=== PATIENT | female | born 1995 | race Caucasian/White ===

== ENCOUNTER 2017-06-08 01:30 | Outpatient (CLI) | payer MEDICAID, OTHER ==
[~2017-06-08] VITALS: Ht 160 cm; Wt 76.0 kg
[~2017-06-08 01:30] MED LIST: NORG1TAB10 PO; PNV1TABL11 PO
[2017-06-08 02:13] LABS: MICROSCOPIC INDICATED
== END 2017-06-08 02:38 | disposition home or self-care (01) ==
LOC: LDOP 01:30
PROVIDERS: ATTEND Obstetrics & Gynecology
DX: O42.913 Preterm premature rupture of membranes, unspecified as to length of time between rupture and onset of labor, third trimester (principal); O26.893 Other specified pregnancy related conditions, third trimester; R10.9 Unspecified abdominal pain; Z3A.35 35 weeks gestation of pregnancy
CPT/HCPCS: 59025; 81001; 87086; 89060; 99211; G0463; Q0114

== ENCOUNTER 2017-06-19 18:07 | Outpatient (CLI) | payer OTHER | END 2017-06-19 19:31 | disposition home or self-care (01) | LOC: LDOP 18:07 | PROVIDERS: ATTEND Obstetrics & Gynecology | DX: O42.90 Premature rupture of membranes, unspecified as to length of time between rupture and onset of labor, unspecified weeks of gestation (principal); Z3A.00 Weeks of gestation of pregnancy not specified | CPT/HCPCS: 59025; 99211; G0463 ==

== ENCOUNTER 2017-06-25 12:27 | Outpatient (CLI) | payer OTHER ==
[~2017-06-25] VITALS: Ht 160 cm; Wt 75.9 kg
[2017-06-25 12:52] VITALS: BP 124/68
[2017-06-27] MEDS ORDERED: IBUP-1222 PO (14:04)
== END 2017-06-25 14:00 | disposition home or self-care (01) ==
LOC: LDOP 12:27
PROVIDERS: ATTEND Obstetrics & Gynecology
DX: O26.893 Other specified pregnancy related conditions, third trimester (principal); R10.9 Unspecified abdominal pain; Z3A.00 Weeks of gestation of pregnancy not specified
CPT/HCPCS: 59025; 99211; G0463

== ENCOUNTER 2017-12-02 16:47 | Emergency (ER) | payer OTHER ==
[~2017-12-02] VITALS: Ht 160 cm; Wt 61.9 kg
[~2017-12-02 16:47] MED LIST changes: +IBUP-1222 PO
[2017-12-02 17:57] LABS: BASOPHILS # (AUTO) 0.02 x10^3/uL (0-0.1); BASOPHILS % (AUTO) 0 % (0-1); EOSINOPHILS # (AUTO) 0.04 x10^3/uL (0-0.4); EOSINOPHILS % (AUTO) 1 % (1-7); LYMPHOCYTES # (AUTO) 2.84 x10^3/uL (1-3.4); LYMPHOCYTES % (AUTO) 37 % (22-44); MD NO; MEAN CORPUSCULAR HEMOGLOBIN 31.6 pg (27.0-34.8); MEAN CORPUSCULAR HGB CONC 34.7 g/dL (32.4-35.8); MEAN CORPUSCULAR VOLUME 91.2 fL (80-100); MEAN PLATELET VOLUME 7.4 fL (7.4-10.4); MONOCYTES # (AUTO) 0.49 x10^3/uL (0.2-0.8); MONOCYTES % (AUTO) 6 % (2-9); NEUTROPHILS # (AUTO) 4.41 x10^3/uL (1.8-6.8); NEUTROPHILS % (AUTO) 57 % (42-75); PLATELET COUNT 289 x10^3/uL (130-400); RED BLOOD COUNT 4.66 x10^6/uL (3.82-5.3); RED CELL DISTRIBUTION WIDTH 13.7 % (9.6-15.2)
[2017-12-02 18:07] LABS: ALBUMIN 4.2 g/dL (3.4-5.0); ANION GAP 8 mmol/L (5-15); CALCIUM 8.8 mg/dL (8.5-10.1); CHLORIDE 109 mmol/L (98-107); CREATININE 0.99 mg/dL (0.55-1.02)
[2017-12-02 19:34] VITALS: BP 125/86
== END 2017-12-02 21:13 | disposition home or self-care (01) ==
LOC: ED 21:00
DX: R55 Syncope and collapse (principal)
CPT/HCPCS: 36415; 80048; 82040; 84703; 85025; 93005; 99285

== ENCOUNTER 2018-06-25 10:27 | Emergency (ER) | payer OTHER ==
[~2018-06-25] VITALS: Ht 160 cm; Wt 58.1 kg
--- NOTE | 2018-06-25 10:40 | NUR ---
PT PRESENTS TO ED FOR GENERALIZED WEAKNESS AND VOMITING, PT APPROX 16 WKS , HAS APPT NEXT WEEK WITH OB BUT HAS NOT REC'D CARE. PT HAS 3 CHILDREN. NO MEDICAL HX. BS 77
--- NOTE | 2018-06-25 11:40 | NUR ---
PT REQUESTING FOOD, LABS DRAWN AND US DONE BUT RESULTS NOT BACK. PT EDUCATED TO WAIT FOR MD TO EAT
[2018-06-25 11:48] LABS: BASOPHILS # (AUTO) 0.03 x10^3/uL (0-0.1); BASOPHILS % (AUTO) 0 % (0-1); EOSINOPHILS # (AUTO) 0.01 x10^3/uL (0-0.4); EOSINOPHILS % (AUTO) 0 % (1-7); LYMPHOCYTES # (AUTO) 2.28 x10^3/uL (1-3.4); LYMPHOCYTES % (AUTO) 26 % (22-44); MD NO; MEAN CORPUSCULAR HEMOGLOBIN 30.6 pg (27.0-34.8); MEAN CORPUSCULAR HGB CONC 34.1 g/dL (32.4-35.8); MEAN CORPUSCULAR VOLUME 89.8 fL (80-100); MEAN PLATELET VOLUME 7.1 fL (7.4-10.4); MONOCYTES # (AUTO) 0.28 x10^3/uL (0.2-0.8); MONOCYTES % (AUTO) 3 % (2-9); NEUTROPHILS # (AUTO) 6.32 x10^3/uL (1.8-6.8); NEUTROPHILS % (AUTO) 71 % (42-75); PLATELET COUNT 311 x10^3/uL (130-400); RED BLOOD COUNT 4.37 x10^6/uL (3.82-5.3); RED CELL DISTRIBUTION WIDTH 13.1 % (9.6-15.2)
[2018-06-25 11:51] LABS: CULTURE INDICATED? YES; MICROSCOPIC INDICATED
[2018-06-25 11:58] LABS: ALANINE AMINOTRANSFERASE 27 U/L (12-78); ALBUMIN 3.7 g/dL (3.4-5.0); ANION GAP 7 mmol/L (5-15); CALCIUM 8.8 mg/dL (8.5-10.1); CHLORIDE 109 mmol/L (98-107); CREATININE 0.67 mg/dL (0.55-1.02)
[2018-06-25 12:20] LABS: ALKALINE PHOSPHATASE 61 U/L (45-117); BILIRUBIN,TOTAL 0.3 mg/dL (0.2-1.0); TOTAL PROTEIN 7.6 g/dL (6.4-8.2)
--- NOTE | 2018-06-25 12:56 | NUR ---
PT RESTING IN GURNEY WATCHING TV, OK TO EAT, UP FOR RECHECK. NAD, VSS, WCTM. AT BEDSIDE
[2018-06-25 12:57] VITALS: BP 105/72
== END 2018-06-25 14:16 | disposition home or self-care (01) ==
LOC: ED 14:04
DX: O23.12 Infections of bladder in pregnancy, second trimester (principal); Z3A.16 16 weeks gestation of pregnancy; Z90.89 Acquired absence of other organs
CPT/HCPCS: 36415; 76815; 80053; 81001; 84702; 85025; 87086; 93005; 99284

== ENCOUNTER 2018-11-17 13:43 | Outpatient (CLI) | payer OTHER ==
[~2018-11-17] VITALS: Ht 160 cm; Wt 64.0 kg
[2018-11-17 14:09] VITALS: BP 109/71
== END 2018-11-17 16:10 | disposition home or self-care (01) ==
LOC: LDOP 13:43
PROVIDERS: ATTEND Obstetrics & Gynecology
DX: O42.913 Preterm premature rupture of membranes, unspecified as to length of time between rupture and onset of labor, third trimester (principal); Z3A.33 33 weeks gestation of pregnancy
CPT/HCPCS: 36415; 59025; 76805; 80307; 81001; 84112; 86592; 86762; 86803; 86850; 86900; 87081; 87340; 87806; 99211; G0463; G0475

== ENCOUNTER 2019-04-28 14:06 | Day surgery (SDC) | payer OTHER ==
[~2019-04-28] VITALS: Ht 160 cm; Wt 66.8 kg
[~2019-04-28 14:06] MED LIST changes: +VITA1TAB86 PO
[2019-04-28] MEDS ORDERED: LACTATED RINGERS 1,000 ML IV SCH (14:22)
[2019-04-28] MEDS ORDERED: BUPIVACAINE/PF-EPI 0.25% 1:200K ONE (14:24)
[2019-04-28] MEDS ORDERED: SILVER NITRATE STICK TP ONE (14:25)
[2019-04-28 14:30] VITALS: BP 133/84
[2019-04-28] MEDS ORDERED: DIAZEPAM 5 MG TABLET PO ONE ×2 (14:30→14:51)
[2019-04-28] MEDS ORDERED: ACETAMINOPHEN 500 MG TABLET PO ONE (14:30)
[2019-04-28] MEDS ORDERED: PLEASE ENTER HEIGHT AND WEIGHT MC SCH (14:30)
[2019-04-28] MEDS ORDERED: SCOPOLAMINE PATCH, 1.5MG PATCH.TD72 TD ONE (14:30)
[2019-04-28] MEDS ORDERED: GABAPENTIN 300 MG CAPSULE PO ONE (14:30)
[2019-04-28 14:38] LABS: HCG UR SG 1.016 (1.003-1.030)
[2019-04-28] MEDS ORDERED: SCOPOLAMINE PATCH, 1.5MG PATCH.TD72 TD STA (14:51)
[2019-04-28] MEDS ORDERED: ACETAMINOPHEN 500 MG TABLET PO STA (14:51)
[2019-04-28] MEDS ORDERED: GABAPENTIN 300 MG CAPSULE PO STA (14:51)
[2019-04-28] MEDS ORDERED: FENTANYL PF 250 MCG/5ML ONE (15:06)
[2019-04-28] MEDS ORDERED: MIDAZOLAM 1 MG/ML, 2ML ONE (15:06)
[2019-04-28] MEDS ORDERED: LIDOCAINE-MPF 2% ,5ML ONE (15:08)
[2019-04-28] MEDS ORDERED: MEPERIDINE/PF 25MG/ML,1ML IVPush PRN (15:30)
[2019-04-28] MEDS ORDERED: PROMETHAZINE 25 MG/ML, 1ML IV PRN (15:30)
[2019-04-28] MEDS ORDERED: OXYcodone 5 MG/5 ML ORAL.SOL UDC PO PRN (15:30)
[2019-04-28] MEDS ORDERED: MIDAZOLAM 1 MG/ML, 2ML IV PRN (15:30)
[2019-04-28] MEDS ORDERED: HYDROmorphone 2 MG/ML, 1ML IVPush PRN (15:30)
[2019-04-28] MEDS ORDERED: SUGAMMADEX 200 MG/2 ML IVPush ONE (15:40)
[2019-04-28] MEDS ORDERED: KETOROLAC 30 MG/1 ML ONE (15:40)
[2019-04-28] MEDS ORDERED: EPHEDRINE 50 MG/ML, 1ML ONE (15:40)
[2019-04-28] MEDS ORDERED: PROPOFOL 10 MG/ML, 20ML ONE (15:41)
[2019-04-28] MEDS ORDERED: NEOSTIGMINE 1 MG/ML, 10ML ONE (15:41)
[2019-04-28] MEDS ORDERED: ONDANSETRON 2MG/ML, 2ML ONE (15:41)
[2019-04-28] MEDS ORDERED: GLYCOPYRROLATE 0.2MG/1ML, 5ML ONE (15:41)
[2019-04-28] MEDS ORDERED: DEXAMETHASONE 4 MG/ML, 1ML ONE (15:41)
[2019-04-28] MEDS ORDERED: ROCURONIUM 10MG/ML,5ML ONE (15:41)
[2019-04-28] MEDS ORDERED: CEFAZOLIN 1,000 MG ONE (15:41)
[2019-04-28] MEDS ORDERED: OXYcodone 5 MG/5 ML ORAL.SOL UDC ONE (16:13)
[2019-04-28] MEDS ORDERED: FENTANYL PF 100 MCG/2ML ONE (16:13)
[2019-04-28] MEDS: FENTANYL PF 100 MCG/2ML IV PRN ×2 (16:15→16:26)
== END 2019-04-28 18:40 | disposition home or self-care (01) ==
LOC: OR 14:06
PROVIDERS: ATTEND Obstetrics & Gynecology
DX: Z30.2 Encounter for sterilization (principal); F53.0 Postpartum depression
CPT/HCPCS: 58670; 81025; 88302; J0690; J1100; J1885; J2250; J2405; J2704; J2710; J3010; J7120

== ENCOUNTER 2020-09-19 09:14 | Emergency (ER) | payer SELFPAY ==
[~2020-09-19] VITALS: Ht 160 cm; Wt 58.4 kg
[2020-09-19 10:18] LABS: BASOPHILS % (AUTO) 1 % (0-1); EOSINOPHILS % (AUTO) 1 % (1-7); LYMPHOCYTES % (AUTO) 23 % (22-44); MEAN CORPUSCULAR HEMOGLOBIN 32.6 pg (27.0-34.8); MEAN CORPUSCULAR HGB CONC 35.2 g/dL (32.4-35.8); MEAN PLATELET VOLUME 7.2 fL (7.4-10.4); MONOCYTES % (AUTO) 7 % (2-9); NEUTROPHILS % (AUTO) 69 % (42-75); PLATELET COUNT 265 x10^3/uL (130-400); RED BLOOD COUNT 4.52 x10^6/uL (3.82-5.3); RED CELL DISTRIBUTION WIDTH 13.1 % (9.6-15.2)
--- NOTE | 2020-09-19 10:27 | NUR ---
release of information clerk: pt from lobby to room 25
[2020-09-19 10:30] LABS: ANION GAP 6 mmol/L (5-15); CALCIUM 10.2 mg/dL (8.5-10.1); CHLORIDE 111 mmol/L (98-107); CREATININE 1.03 mg/dL (0.55-1.02)
--- NOTE | 2020-09-19 10:39 | NUR ---
PT STATES 3 DAYS AGO HAD SWELLING OF THE LYMPHS IN THE NECK. SORE THROAT. YESTERDAY HAD UPPER CHEST PAIN AND MID BACK PAIN 5/10 THAT IS BILATERALLY EQUAL. DOESNT NOT RADIATE, NO FEVER, NO N/V. PT STATES HAS SEASONAL ALLERGIES.
[2020-09-19 10:50] VITALS: BP 124/69
--- NOTE | 2020-09-19 11:26 | NUR ---
Patient given discharge instructions and they have confirmed that they understand the instructions. Patient ambulatory with steady gait. No question at time of discharge.
== END 2020-09-19 11:29 | disposition home or self-care (01) ==
LOC: ED 11:27
DX: M94.0 Chondrocostal junction syndrome [Tietze] (principal); R07.89 Other chest pain; R94.31 Abnormal electrocardiogram [ECG] [EKG]; Z90.89 Acquired absence of other organs
CPT/HCPCS: 36415; 71045; 80048; 82040; 84703; 85025; 93005; 99285